=== PATIENT | male | born 1995 | race Caucasian/White ===

== ENCOUNTER 2017-09-21 20:32 | Emergency (ER) | payer SELFPAY ==
[2017-09-21] MEDS ORDERED: LIDOCAINE 1% MPF 5 ML VIAL ONE (21:04)
--- NOTE | 2017-09-21 21:16 | EDPHYS ---
Physician Documentation [facility] Name: Link Kwok Age: 21 yrs Sex: Male : 1995 Arrival Date: 09/21/2017 Time: 20:38 Bed 20 Private MD: ED Physician Franck Quiñones HPI: 09/21 21:12 This 21 yrs old Male presents to ER via Wheelchair with complaints of FISH gs HOOK IN FOOT. 21:12 The reported likely foreign body is a fishhook. Onset: The symptoms/episode gs began/occurred acutely, just prior to arrival. Current symptoms: pain. The patient has not experienced similar symptoms in the past. Historical: - Allergies: 20:49 No Known Allergies; ak1 - Home Meds: 20:49 Lexapro 10 mg Oral tab 1 tab once daily [Active]; ak1 - PMHx: 20:49 Depression; ak1 - PSHx: 20:49 None; ak1 - Immunization history:: Adult Immunizations unknown. - Social history:: Smoking status: Patient/guardian denies using tobacco. - Ebola Screening: : No symptoms or risks identified at this time. ROS: 21:12 All other systems are negative. gs Exam: 21:12 Constitutional: The patient appears alert, awake. gs 21:12 Musculoskeletal/extremity: ROM: intact in all extremities, Pulses: are normal with no appreciated deficits. 21:12 Skin: injury, puncture(s), that are deep. 21:12 Skin: injury, puncture(s), large fishook. Vital Signs: 20:49 BP 118 / 80; Pulse 77; Resp 18; Temp 98.6(O); Pulse Ox 99% on R/A; Weight 61.69 kg (R); ak1 Height 5 ft. 9 in. (175.26 cm) (R); Pain 2/10; 20:49 Body Mass Index 20.08 (61.69 kg, 175.26 cm) ak1 Procedures: 21:12 Foreign Body Removal: a fishhook, from the left left foot, by pliers push through and gs cut tip and remove. The patient tolerated the removal well. MDM: 20:59 Patient medically screened. gs 21:12 Data reviewed: vital signs, nurses notes. gs Administered Medications: 21:10 Drug: Lidocaine (1 %) 10 mg Volume: 20 ml; Route: Infiltration; lp1 21:20 Drug: Ibuprofen 800 mg Route: PO; lp1 21:35 Follow up: Response: Medication administered at discharge. 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 Lot #: [id number]. } Route: IM; Site: right deltoid; 21:35 Follow up: Response: Medication administered at discharge. lp1 Disposition: 09/21/17 21:16 Discharged to Home. Impression: Puncture wound with foreign body, left foot. - Condition is Stable. - Discharge Instructions: Puncture Wound. - Prescriptions for Tylenol- Codeine #4 300-60 mg Oral Tablet - take 1 tablet by ORAL route every 6 hours As needed; 6 tablet. Doxycycline Hyclate 100 mg Oral Tablet - take 1 tablet by ORAL route every 12 hours; 10 tablet. - Medication Reconciliation Form, Thank You Letter, Antibiotic Education, Prescription Opioid Use form. - Follow up: Private Physician; When: 2 - 3 days; Reason: Re-evaluation by your physician. Signatures: Selma Gambino RN RN lp1 Julia De Luna RN RN ak1 Franck Quiñones MD MD Corrections: (The following items were deleted from the chart) 21:41 21:16 09/21/2017 21:16 Discharged to Home. Impression: Puncture wound with foreign lp1 body, left foot. Condition is Stable. Forms are Medication Reconciliation Form, Thank You Letter, Antibiotic Education, Prescription Opioid Use. Follow up: Private Physician; When: 2 - 3 days; Reason: Re-evaluation by your physician. gs
--- NOTE | 2017-09-21 21:16 | ER ---
Nurse's Notes [facility] Name: Link Kwok Age: 21 yrs Sex: Male : 1995 Arrival Date: 09/21/2017 Time: 20:38 Bed 20 Private MD: Diagnosis: Puncture wound with foreign body, left foot Presentation: 09/21 20:47 Presenting complaint: Patient states: fish hook to left foot at 2000. Transition of ak1 care: patient was not received from another setting of care. Onset of symptoms was September 21, 2017. Risk Assessment: Do you want to hurt yourself or someone else? Patient reports no desire to harm self or others. Initial Sepsis Screen: Does the patient meet any 2 criteria? No. Patient's initial sepsis screen is negative. Does the patient have a suspected source of infection? No. Patient's initial sepsis screen is negative. Care prior to arrival: None. 20:47 Method Of Arrival: Wheelchair ak1 20:47 Acuity: NAUN 4 ak1 Triage Assessment: 20:51 General: Appears in no apparent distress. Behavior is calm, cooperative. ak1 20:51 Pain: Complains of pain in left foot. EENT: No signs and/or symptoms were reported ak1 regarding the EENT system. Neuro: No deficits noted. Cardiovascular: No deficits noted. Respiratory: No deficits noted. GI: No signs and/or symptoms were reported involving the gastrointestinal system. : No signs and/or symptoms were reported regarding the genitourinary system. Derm: fish hook in left foot. Musculoskeletal: No signs and/or symptoms reported regarding the musculoskeletal system. Historical: - Allergies: 20:49 No Known Allergies; ak1 - Home Meds: 20:49 Lexapro 10 mg Oral tab 1 tab once daily [Active]; ak1 - PMHx: 20:49 Depression; ak1 - PSHx: 20:49 None; ak1 - Immunization history:: Adult Immunizations unknown. - Social history:: Smoking status: Patient/guardian denies using tobacco. - Ebola Screening: : No symptoms or risks identified at this time. Screenin:50 Abuse screen: Denies threats or abuse. Denies injuries from another. Nutritional ak1 screening: No deficits noted. Tuberculosis screening: No symptoms or risk factors identified. Fall Risk None identified. Assessment: 21:00 General: Appears in no apparent distress. Behavior is appropriate for age. Pain: lp1 Complains of pain in ball of left foot Pain currently is 7 out of 10 on a pain scale. Neuro: Level of Consciousness is awake, alert, obeys commands. Cardiovascular: Patient's skin is warm and dry. Respiratory: Respiratory effort is even, unlabored. GI: No signs and/or symptoms were reported involving the gastrointestinal system. : No signs and/or symptoms were reported regarding the genitourinary system. EENT: No signs and/or symptoms were reported regarding the EENT system. Derm: Wound noted ball of left foot Wound is Puncture with fish hook to left ball of foot. Musculoskeletal: Range of motion: intact in all extremities. Vital Signs: 20:49 BP 118 / 80; Pulse 77; Resp 18; Temp 98.6(O); Pulse Ox 99% on R/A; Weight 61.69 kg (R); ak1 Height 5 ft. 9 in. (175.26 cm) (R); Pain 2/10; 20:49 Body Mass Index 20.08 (61.69 kg, 175.26 cm) ak1 ED Course: 20:38 Patient arrived in ED. al2 20:48 Triage completed. ak1 20:49 Arm band placed on Patient placed in an exam room, on a stretcher, Patient notified of ak1 wait time. 20:50 Patient has correct armband on for positive identification. ak1 20:54 Franck Quiñones MD is Attending Physician. gs 21:10 Assist provider with foreign body removal of a fish hook from ball of left foot Set up lp1 for procedure. Performed by Franck Quiñones MD Dressed with gauze bandage, Patient tolerated well. 21:10 Patient did not have IV access during this emergency room visit. lp1 21:15 Wound care: to puncture located on ball of left foot was irrigated with normal saline. lp1 21:19 Selma Gambino RN is Primary Nurse. lp1 Administered Medications: 21:10 Drug: Lidocaine (1 %) 10 mg Volume: 20 ml; Route: Infiltration; lp1 21:20 Drug: Ibuprofen 800 mg Route: PO; lp1 21:35 Follow up: Response: Medication administered at discharge. 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 Lot #: [id number]. } Route: IM; Site: right deltoid; 21:35 Follow up: Response: Medication administered at discharge. lp1 Outcome: 21:16 Discharge ordered by . rena 21:40 Discharged to home with family, with friend. lp1 21:40 Condition: good 21:40 Discharge instructions given to patient, Instructed on discharge instructions, follow up and referral plans. medication usage, wound care, Demonstrated understanding of instructions, follow-up care, medications, wound care. 21:41 Patient left the ED. lp1 Signatures: Selma Gambino RN RN lp1 Julia De Luna RN RN ak1 Franck Quiñones MD MD gs Love, Tori ny
[2017-09-21] MEDS ORDERED: TETANUS & DIPHTHERIA TOX,ADULT 0.5 ML VIAL ONE (21:23)
[2017-09-21] MEDS ORDERED: IBUPROFEN 400 MG TAB ONE (21:23)
== END 2017-09-21 21:41 | disposition home or self-care (01) ==
LOC: ER 20:32
DX: S91.342A Puncture wound with foreign body, left foot, initial encounter (principal); X58.XXXA Exposure to other specified factors, initial encounter; Y92.838 Other recreation area as the place of occurrence of the external cause
CPT/HCPCS: 90714; 99284